=== PATIENT | male | born 1985 | race Caucasian/White ===

== ENCOUNTER 2020-08-04 20:02 | Emergency (ER) | payer BC ==
[~2020-08-04] VITALS: Ht 172.7 cm; Wt 185.0 kg
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
[2020-08-04 21:05] VITALS: BP 134/86
== END 2020-08-04 21:05 ==
LOC: EDSTATUS 20:02 → ER 20:03
DX: R11.2 Nausea with vomiting, unspecified (principal); F10.129 Alcohol abuse with intoxication, unspecified; Y90.9 Presence of alcohol in blood, level not specified
CPT/HCPCS: 99281; 99283